=== PATIENT | female | born 1990 | race African-American/Black ===

== ENCOUNTER 2018-07-30 09:57 | Day surgery (SDC) | payer OTHER ==
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
[~2018-07-30 09:57] MED LIST: Buffered Lidocaine 1% SYRIN* 1 ML/SYRINGE INTRADERM ONE; Dexamethasone IV* 4 MG/ML 1 ML (4 MG) IV SLOW PU ONE; Dexamethasone IV* 4 MG/ML 1 ML (4 MG) ONE; Famotidine IV* 10 MG/ML 2 ML (20 mg) IV ONE; Famotidine IV* 10 MG/ML 2 ML (20 mg) ONE; Lactated Ringers 1000 ML Bag* 1,000 ML IV SCH
[2018-07-30] MEDS ORDERED: Ondansetron INJ* 2 MG/ML VIAL ONE (12:37)
[2018-07-30] MEDS ORDERED: Propofol* 10 MG/ML 20 ML BTL ONE (12:37)
[2018-07-30] MEDS ORDERED: Ketorolac INJ* 30 MG/ML 1 ML VIAL ONE (12:37)
[2018-07-30] MEDS ORDERED: fentaNYL* 50 MCG/ML 2 ML VIAL (100 MCG VIAL) ONE (12:37)
[2018-07-30] MEDS ORDERED: Midazolam* 1 MG/ML 2 ML VIAL (2 MG) ONE (12:37)
[2018-07-30] MEDS ORDERED: Lidocaine 1% INJ* 10 MG/ML 30 ML SDV ONE (12:40)
[2018-07-30] MEDS ORDERED: Naloxone* 0.4 MG/ML 1 ML VIAL IV PRN (13:00)
[2018-07-30 13:26] VITALS: BP 121/82
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
== END 2018-07-30 13:27 | disposition home or self-care (01) ==
LOC: OREAST 09:57
PROVIDERS: ATTEND Orthopaedic Surgery
DX: M65.4 Radial styloid tenosynovitis [de Quervain] (principal); J45.909 Unspecified asthma, uncomplicated; Z72.0 Tobacco use; F41.9 Anxiety disorder, unspecified
CPT/HCPCS: 81025; J1100; J1885; J2250; J2405; J2704; J3010

== ENCOUNTER 2021-08-19 20:43 | Inpatient (IN) ==
[2021-08-19 21:48] LABS: Hematocrit 34 % (35-47); Hemoglobin 10.8 g/dL (12.0-16.0); Mean Corpuscular HGB Conc 32 g/dL (31-36); Mean Corpuscular Hemoglobin 24 pg (27-31); Mean Corpuscular Volume 76 fL (80-97); Mean Platelet Volume 8.7 fL (7.4-10.4); Platelet Count 218 10^3/uL (150-450); Red Blood Count 4.46 10^6 /uL (3.70-4.87); Red Cell Distribution Width 14 % (10-15); White Blood Count 5.6 10^3/uL (3.5-10.8)
[2021-08-19] MEDS ORDERED: Buffered Lidocaine 1% SYRIN 1 ml INTRADERM ONE (21:51)
[2021-08-19] MEDS ORDERED: Lactated Ringers 1000 ml BAG 1,000 ML IV ONE (21:51)
[2021-08-19] MEDS ORDERED: ceFAZolin 2 GM PREMIX 2 GM/50 ML BAG IVPB ONE (22:15)
[2021-08-19 22:27] LABS: Albumin 2.9 g/dL (3.2-5.2); Albumin/Globulin Ratio 1.1 (1-3); Calcium 8.7 mg/dL (8.6-10.3); Globulin 2.7 g/dL (2-4); Potassium 3.9 mmol/L (3.5-5.0); Total Bilirubin 0.4 mg/dL (0.2-1.0); Total Protein 5.6 g/dL (6.4-8.9); eGFR CKD-EPI 120.6 (>60)
[2021-08-20 03:30] LABS: Urine Benzodiazepine Screen None Detected (None Detect); Urine Cannabinoids Screen None Detected (None Detect); Urine Opiates Screen None Detected (None Detect)
[2021-08-20 08:59] LABS: Uric Acid 7.4 mg/dL (2.3-6.6)
[2021-08-20] MEDS: Lactated Ringers 1000 ml BAG 1,000 ML IV SCH ×2 (09:00→13:01)
[2021-08-20] MEDS ORDERED: Oxytocin in LR 20 UNITS/1,000 ML BAG IVPB SCH ×2 (11:00→20:00)
[2021-08-20] MEDS ORDERED: OBEPIDURAL (200 ML) 200 ML EPIDURAL ONE (14:06)
[2021-08-20] MEDS ORDERED: Lactated Ringers 1000 ml BAG 1,000 ML IV ONE (15:08)
[2021-08-20] MEDS ORDERED: Phenylephrine 40 mcg/mL 10mL (400mcg) SYRINGE IV PUSH PRN ×2 (15:08)
[2021-08-20] MEDS ORDERED: Sodium Citrate/Citric Acid LIQ 15 ML UDC PO PRN (15:08)
[2021-08-20] MEDS ORDERED: Lactated Ringers 1000 ml BAG 1,000 ML IV SCH ×2 (16:00→20:00)
[2021-08-20] MEDS ORDERED: OBEPIDURAL (200 ML) 200 ML EPIDURAL SCH (16:00)
[2021-08-20 16:31] LABS: Urine Appearance Cloudy; Urine Bilirubin Negative (Negative); Urine Blood 2+ (Negative); Urine Color Yellow; Urine Glucose Negative (Negative); Urine Ketones Negative (Negative); Urine Nitrite Negative (Negative); Urine Protein 2+(100 mg/dL) (Negative); Urine Specific Gravity 1.016 (1.002-1.030); Urine Urobilinogen Negative (Negative)
[2021-08-20 17:06] LABS: Urine Bacteria Absent (Absent); Urine Red Blood Cell 3+(>10/hpf) (Absent); Urine Squamous Epithelial Cell Present (Absent); Urine Transitional Epithelial Present (Absent); Urine White Blood Cell Trace(0-5/hpf) (Absent)
[2021-08-20] MEDS ORDERED: Glycerin ADULT 2.4 gm SUPP PR PRN (19:24)
[2021-08-20] MEDS ORDERED: ceFAZolin VIAL 1 GM in NS 0.9% 50 ML 50 ML IVPB SCH (19:30)
[2021-08-20] MEDS: Dibucaine 1% OINT 28.35 GM TUBE PR PRN (21:45)
[2021-08-20] MEDS: Witch Hazel PAD JAR TOPICAL PRN (21:45)
[2021-08-21] MEDS: Witch Hazel PAD JAR TOPICAL PRN ×2 (03:15→06:13)
[2021-08-21] MEDS: Dibucaine 1% OINT 28.35 GM TUBE PR PRN (03:15)
[2021-08-21 08:22] LABS: ABS Lymphocytes 1.1 10^3/ul (1.0-4.8); ABS Monocytes 1.2 10^3/ul (0-0.8); ABS Neutrophils 9.6 10^3/ul (1.5-7.7); Eosinophil % 0.1 %; Hematocrit 31 % (35-47); Hemoglobin 9.9 g/dL (12.0-16.0); Lymphocyte % 8.9 %; Mean Corpuscular HGB Conc 32 g/dL (31-36); Mean Corpuscular Hemoglobin 23 pg (27-31); Mean Corpuscular Volume 74 fL (80-97); Mean Platelet Volume 8.4 fL (7.4-10.4); Platelet Count 175 10^3/uL (150-450); Red Blood Count 4.23 10^6 /uL (3.70-4.87); Red Cell Distribution Width 13 % (10-15); White Blood Count 11.9 10^3/uL (3.5-10.8)
[2021-08-22 11:48] VITALS: BP 131/74
== END 2021-08-22 17:50 | disposition home or self-care (01) | DRG 560 ==
LOC: MCHOBOUT 20:43 → MCHOB 21:55
PROVIDERS: ADMIT Obstetrics & Gynecology; ATTEND Obstetrics & Gynecology